=== PATIENT | female | born 1955 | race Hispanic/Latino ===

== ENCOUNTER 2016-05-02 12:15 | Emergency (ER) | payer OTHER ==
--- NOTE | 2016-05-02 12:51 | XRay Report ---
ROUTINE CHEST, TWO VIEWS: HISTORY: chest pain. No comparison. Heart size is borderline. Mild cephalization of pulmonary blood flow is suspected. There is no evidence for pleural effusion, infiltrate or pneumothorax. The thoracic cage is intact. IMPRESSION: Borderline heart size. Lungs clear.
[2016-05-02 13:46] LABS: Basophils % (Auto) 0.5 % (0.0-1.8); Hematocrit 36.1 % (30.3-42.9); Mean Corpuscular HGB Conc 33 % (30-34); Mean Corpuscular Hemoglobin 34 pg (28-32); Mean Corpuscular Volume 103 fl (79-97); Platelet Count 259 K/mm3 (140-440); Red Cell Distribution Width 14.1 % (13.2-15.2); White Blood Count 7.4 K/mm3 (4.5-11.0)
[2016-05-02 13:57] LABS: Anion Gap 21 mmol/L; BUN/Creatinine Ratio 12.35; Blood Urea Nitrogen 42 mg/dL (7-17); Calcium 8.9 mg/dL (8.4-10.2); Carbon Dioxide 22 mmol/L (22-30); Chloride 98.6 mmol/L (98-107); Glucose 104 mg/dL (65-100); Sodium 138 mmol/L (137-145)
[2016-05-02] MEDS ORDERED: CATAPRES PO ONE (14:15)
[2016-05-02] MEDS ORDERED: PROVENTIL IH ONE (14:15)
[2016-05-02] MEDS ORDERED: TESSALON PERLES PO ONE (14:15)
--- NOTE | 2016-05-02 14:17 | Emergency Department Report ---
ED General Adult HPI - General Chief complaint: Dyspnea/Respdistress Stated complaint: IVONNE Time Seen by Provider: 05/02/16 14:03 Source: patient, RN notes reviewed Mode of arrival: Ambulatory Limitations: No Limitations - History of Present Illness Initial comments: This is a 61-year-old female. She is previously unknown to me. Patient is not certain who her primary care doctor is. Has a past medical history of high cholesterol, hypertension. Reports a history of renal insufficiency and congestive heart failure. As per review of medical records from [facility], patient admitted to the hospital in May 2015, had a blood urea nitrogen of 60, and a creatinine of 2.92. Had an echocardiogram in May 2015, which demonstrated an ejection fraction of approximately 20-25%, With restrictive physiology. She was also noted to have a dilated left atrium, dilated right atrium. Patient reports she hasn't really followed up with cardiology or nephrology since then. She presents to the ER complaining of chest congestion, and shortness of breath for the past 3 days. The patient denies pain. She admits to cough, mucus production. She has chronically decreased exercise tolerance, chronic tobacco use. There is no leg pain. There is no leg swelling. No recent trips greater than 4 hours. No recent hospital admissions. The patient reports that her allergies are really really acting up. -: Gradual Consistency: intermittent Improves with: rest Worsens with: movement Associated Symptoms: cough, shortness of breath - Related Data Home Medications Medication Instructions Recorded Confirmed Last Taken AtorvaSTATin [Lipitor] 20 mg PO QHS 05/02/16 05/02/16 05/02/16 Carvedilol [Coreg] 6.25 mg PO BID 05/02/16 05/02/16 05/02/16 Hydralazine HCl [Apresoline TAB] 50 mg PO Q8HR 05/02/16 05/02/16 05/02/16 ISOSORBIDE MONOnitrate [Imdur ER] 30 mg PO DAILY 05/02/16 05/02/16 05/02/16 Torsemide [Demadex] 20 mg PO DAILY 05/02/16 05/02/16 05/02/16 Allergies Allergy/AdvReac Type Severity Reaction Status Date / Time No Known Allergies Allergy Unverified 05/02/16 12:21 ED Review of Systems ROS: Stated complaint: IVONNE Other details as noted in HPI Constitutional: denies: malaise Eyes: denies: vision change Respiratory: shortness of breath Cardiovascular: dyspnea on exertion Gastrointestinal: denies: abdominal pain, nausea, diarrhea Genitourinary: denies: urgency, dysuria, discharge Musculoskeletal: denies: back pain, joint swelling, arthralgia Skin: denies: rash, lesions Neurological: denies: headache, weakness, paresthesias Psychiatric: denies: anxiety, depression ED Past Medical Hx - Past Medical History Previous Medical History?: Yes Hx Hypertension: Yes Hx Heart Attack/AMI: Yes Hx Congestive Heart Failure: Yes Hx Renal Disease: Yes (renal insufficiency) Additional medical history: high cholesterol - Surgical History Past Surgical History?: No - Social History Smoking Status: Current Every Day Smoker Substance Use Type: Prescribed - Medications Home Medications: Home Medications Medication Instructions Recorded Confirmed Last Taken Type AtorvaSTATin [Lipitor] 20 mg PO QHS 05/02/16 05/02/16 05/02/16 History Carvedilol [Coreg] 6.25 mg PO BID 05/02/16 05/02/16 05/02/16 History Hydralazine HCl [Apresoline TAB] 50 mg PO Q8HR 05/02/16 05/02/16 05/02/16 History ISOSORBIDE MONOnitrate [Imdur ER] 30 mg PO DAILY 05/02/16 05/02/16 05/02/16 History Torsemide [Demadex] 20 mg PO DAILY 05/02/16 05/02/16 05/02/16 History ED Physical Exam - General Limitations: No Limitations General appearance: alert, in no apparent distress - Head Head exam: Present: atraumatic, normocephalic - Eye Eye exam: Present: normal appearance, EOMI. Absent: nystagmus - ENT ENT exam: Present: normal exam, normal orophraynx, mucous membranes moist, normal external ear exam - Neck Neck exam: Present: normal inspection, full ROM. Absent: tenderness, meningismus - Respiratory Respiratory exam: Present: normal lung sounds bilaterally, rhonchi. Absent: wheezes, rales, stridor, chest wall tenderness - Cardiovascular Cardiovascular Exam: Present: regular rate, normal rhythm, normal heart sounds. Absent: bradycardia, tachycardia, irregular rhythm, systolic murmur, diastolic murmur, rubs, gallop - GI/Abdominal GI/Abdominal exam: Present: soft, normal bowel sounds. Absent: distended, tenderness, guarding, rebound, rigid, pulsatile mass - Extremities Exam Extremities exam: Present: normal inspection, full ROM, normal capillary refill. Absent: tenderness, pedal edema, joint swelling, calf tenderness - Back Exam Back exam: Present: normal inspection, full ROM. Absent: tenderness, CVA tenderness (R), CVA tenderness (L), muscle spasm, paraspinal tenderness, vertebral tenderness - Neurological Exam Neurological exam: Present: alert, oriented X3, normal gait, other (Extraocular movements intact. Tongue midline. No facial droop. Facial sensation intact to light touch in the V1, V2, V3 distribution bilaterally. 5 and 5 strength in 4 extremities.. Sensation is intact to light touch in 4 extremities.). Absent : motor sensory deficit - Psychiatric Psychiatric exam: Present: normal affect, normal mood - Skin Skin exam: Present: warm, dry, intact, normal color. Absent: rash ED Course Vital Signs 05/02/16 05/02/16 05/02/16 12:25 14:31 14:57 Temperature 98.8 F 98.5 F Pulse Rate 84 77 74 Respiratory 22 16 13 Rate Blood Pressure 195/128 Blood Pressure 174/108 [Left] O2 Sat by Pulse 99 100 99 Oximetry 05/02/16 05/02/16 15:00 15:11 Temperature Pulse Rate 75 77 Respiratory 15 11 L Rate Blood Pressure 180/110 180/110 Blood Pressure [Left] O2 Sat by Pulse 100 Oximetry - Reevaluation(s) Reevaluation #1: 05/02/16 15:24 Differential diagnosis: Bronchitis, seasonal allergies, chronic renal insufficiency, chronic cardiomyopathy, cardiorenal syndrome Assessment and plan: 61-year-old female with cough, shortness of breath, mucus production. However, she is moderately hypertensive, has worsening renal insufficiency, decrease exercise tolerance is somewhat rhonchorous, and has an elevated BNP. Clinical picture is ambiguous, uncertain if early decompensated heart failure, worsening renal insufficiency, bronchitis, or combination of the above. I will discuss with cardiology, nephrology, and admit for further evaluation and management. 05/02/16 15:25 05/02/16 15:27 Reevaluation #2: 05/02/16 15:43 Dr Navas to admit Dr Zavala of renal to follow Reevaluation #3: 05/02/16 15:46 d/w Dr Owen who will follow ED Medical Decision Making - Lab Data Result diagrams: 05/02/16 13:21 05/02/16 13:21 Vital Signs 05/02/16 05/02/16 05/02/16 12:25 14:31 14:57 Temperature 98.8 F 98.5 F Pulse Rate 84 77 74 Respiratory 22 16 13 Rate Blood Pressure 195/128 Blood Pressure 174/108 [Left] O2 Sat by Pulse 99 100 99 Oximetry 05/02/16 05/02/16 15:00 15:11 Temperature Pulse Rate 75 77 Respiratory 15 11 L Rate Blood Pressure 180/110 180/110 Blood Pressure [Left] O2 Sat by Pulse 100 Oximetry Lab Results 05/02/16 05/02/16 05/02/16 Range/Units 13:21 13:21 13:21 WBC 7.4 (4.5-11.0) K/mm3 RBC 3.50 L (3.65-5.03) M/mm3 Hgb 12.0 (10.1-14.3) gm/dl Hct 36.1 (30.3-42.9) % MCV 103 H (79-97) fl MCH 34 H (28-32) pg MCHC 33 (30-34) % RDW 14.1 (13.2-15.2) % Plt Count 259 (140-440) K/mm3 Lymph % (Auto) 15.6 (13.4-35.0) % [place] % (Auto) 12.6 H (0.0-7.3) % Eos % (Auto) 2.0 (0.0-4.3) % Baso % (Auto) 0.5 (0.0-1.8) % Lymph # 1.2 (1.2-5.4) K/mm3 [place] # 0.9 H (0.0-0.8) K/mm3 Eos # 0.1 (0.0-0.4) K/mm3 Baso # 0.0 (0.0-0.1) K/mm3 Seg Neutrophils % 69.3 (40.0-70.0) % Seg Neutrophils # 5.1 (1.8-7.7) K/mm3 Sodium 138 (137-145) mmol/L Potassium 4.0 (3.6-5.0) mmol/L Chloride 98.6 (98-107) mmol/L Carbon Dioxide 22 (22-30) mmol/L Anion Gap 21 mmol/L BUN 42 H (7-17) mg/dL Creatinine 3.4 H (0.7-1.2) mg/dL Estimated GFR 14 ml/min BUN/Creatinine Ratio 12.35 % Glucose 104 H (65-100) mg/dL Calcium 8.9 (8.4-10.2) mg/dL Magnesium 2.5 H (1.7-2.3) mg/dL Troponin T < 0.010 (0.00-0.029) ng/mL NT-Pro-B Natriuret Pep 1635 H (0-900) pg/mL - EKG Data 05/02/16 15:26 normal sinus 73 bpm, normal intervals normal axis, qtc 475 ms, poor r wave progression, no prior for comparison - Radiology Data Radiology results: report reviewed, image reviewed mild pulm vasc congestion nap otherwise Critical care attestation.: If time is entered above; I have spent that time in minutes in the direct care of this critically ill patient, excluding procedure time. ED Disposition Clinical Impression: Cardiorenal syndrome Qualifiers: Hypertensive chronic kidney disease stage: stage 1-4 or unspecified chronic kidney disease Heart failure presence: with heart failure Qualified Code(s): I13.0 - Hypertensive heart and chronic kidney disease with heart failure and stage 1 through stage 4 chronic kidney disease, or unspecified chronic kidney disease Disposition: OP ADMITTED IP TO THIS HOSP Is pt being admited?: Yes Does the pt Need Aspirin: Yes Condition: Good Referrals: PRIMARY CARE, [Primary Care Provider] - 3-5 Days
[2016-05-02 15:18] LABS: Magnesium 2.5 mg/dL (1.7-2.3)
[2016-05-02 15:24] VITALS: BP 180/110
[2016-05-02] MEDS ORDERED: APRESOLINE IV ONE (15:27)
[2016-05-02] MEDS ORDERED: BABY ASPIRIN PO ONE (15:28)
--- NOTE | 2016-05-02 16:00 | Consultation ---
History of Present Illness - Reason for Consult Consult date: 05/02/16 acute renal failure, chronic renal failure - History of Present Illness Patient is a 61-year-old WF with history significant for Hypertension, Hyperlipidemia, COPD, cigarette smoking, Systolic CHF and CKD stage 4 approaching stage 5 came to ER with progressive SOB for the past few days. Patient smokes atleast one pack of cigarettes a day. She admits to cough with clear mucus production. She has chronic decreased exercise tolerance. Patient was admitted at [facility], [place] in May 2015, was diagnosed with CHF with EF 20-25% and CKD stage 4. Extensive renal workup at that time was negative. CKD was presumed secondary to Hypertensive Nephropathy. no h/o fever , rash, sore throat, N, V, D, abd pain, cp, dizziness, hemoptysis, weakness, dysuria or hematuria. She is not currently followed by any physician. Past History Past Medical History: COPD, hypertension, hyperlipidemia, renal failure Social history: , smoking. denies: alcohol abuse, prescription drug abuse Medications and Allergies Allergies Allergy/AdvReac Type Severity Reaction Status Date / Time No Known Allergies Allergy Unverified 05/02/16 12:21 Home Medications Medication Instructions Recorded Confirmed Last Taken Type AtorvaSTATin [Lipitor] 20 mg PO QHS 05/02/16 05/02/16 05/02/16 History Carvedilol [Coreg] 6.25 mg PO BID 05/02/16 05/02/16 05/02/16 History Hydralazine HCl [Apresoline TAB] 50 mg PO Q8HR 05/02/16 05/02/16 05/02/16 History ISOSORBIDE MONOnitrate [Imdur ER] 30 mg PO DAILY 05/02/16 05/02/16 05/02/16 History Torsemide [Demadex] 20 mg PO DAILY 05/02/16 05/02/16 05/02/16 History Review of Systems Constitutional: no weight loss, no weight gain, no fever, no chills, no anorexia Ears, nose, mouth and throat: no sinus pain, no epistaxis, no dysphagia Breasts: deferred Cardiovascular: shortness of breath, dyspnea on exertion, high blood pressure, no chest pain, no orthopnea, no edema, no syncope, no lightheadedness, no leg edema Respiratory: cough, cough with sputum, shortness of breath, dyspnea on exertion , no hemoptysis Gastrointestinal: no abdominal pain, no nausea, no vomiting, no diarrhea, no melena Genitourinary Female: no dysuria, no hematuria Rectal: no bleeding Musculoskeletal: no neck stiffness, no neck pain Integumentary: no rash, no wounds Neurological: no head injury, no paralysis, no weakness, no syncope Psychiatric: anxiety Hematologic/Lymphatic: no easy bleeding Allergic/Immunologic: no urticaria Exam - Vital Signs Vital signs: Vital Signs Temp Pulse Resp BP Pulse Ox 98.8 F 84 22 195/128 99 05/02/16 12:25 05/02/16 12:25 05/02/16 12:25 05/02/16 12:25 05/02/16 12:25 - General Appearance General appearance: well-developed, well-nourished, appears stated age, other ( no distress) EENT: PERRL, mucous membranes moist, hearing intact, vision intact Neck: Present: neck supple, trachea midline Respiratory: [place] Heart: regular, S1S2, no murmurs Gastrointestinal: Present: normoactive bowel sounds. Absent: tenderness, distended Integumentary: no rash, warm and dry Neurologic: no focal deficit, no asterixis, alert and oriented x3, CN 3-12 intact Musculoskeletal: Present: other (no edema) Psychiatric: cooperative Results - Lab Results 05/02/16 13:21 05/02/16 13:21 Most recent lab results Calcium 8.9 mg/dL (8.4-10.2) 05/02/16 13:21 Magnesium 2.5 mg/dL (1.7-2.3) H 05/02/16 13:21 Assessment and Plan - Patient Problems (1) Chronic kidney disease, stage 5 Status: Chronic Plan to address problem: CKD secondary to Hypertensive Nephropathy. Creatinine appears to be stable. (2) Accelerated hypertension Status: Acute Plan to address problem: Monitor BP and adjust meds as appropriate. (3) COPD exacerbation Status: Acute (4) Tobacco abuse Status: Chronic Plan to address problem: Counseled to quit smoking. (5) Medical non-compliance Status: Chronic Plan to address problem: Compliance encouraged.
--- NOTE | 2016-05-02 16:02 | Admit Criteria Form ---
Admission Criteria Documentation: HYPERTENSION Clinical Indications for Admission to Inpatient Care ( Place "X" for any and all applicable criteria): Admission is indicated for ANY ONE of the following(1)(2)(3)(4): [ ]I. Hypertensive emergency, with evidence of acute and progressing target organ disease as indicated by ANY ONE of the following: [ ]a) Hypertensive encephalopathy (eg, confusion, altered mental status) [ ]b) Cerebral infarction [ ]c) Intracranial hemorrhage [ ]d) Myocardial ischemia or infarction [ ]e) Pulmonary edema [ ]f) Aortic dissection [ ]g) Seizure [ ]h) Acute renal insufficiency [ ]i) Papilledema [ ]j) Microangiopathic hemolytic anemia [ ]II. Adrenergic crisis (eg, severe hypertension due to pheochromocytoma crisis, cocaine or amphetamine intoxication, or clonidine withdrawal) [ X]III. Severe hypertension (SBP greater than 180 mmHg or DBP greater than 110 mmHg or greater than the 95th percentile for age, gender, and height in pediatric patients) that cannot be controlled (eg, to SBP less than 160 mmHg and DBP less than 100 mmHg in adults) by treatment with oral medication in emergency department or observation care Extended stay beyond goal length of stay may be needed for(11)(12)(13): [ ]a) Persistent hypertensive encephalopathy [ ]b) Continuation of pulmonary edema [ ]c) Recurring or persistent severe hypertension [ ]d) Target organ damage (eg, angina, stroke, aortic dissection) [ ]e) Associated renal insufficiency The original [email or web address] content created by [email or web address] has been revised. The portions of the content which have been revised are identified through the use of italic text or in bold, and [facility] has neither reviewed nor approved the modified material. All other unmodified content is copyright [email or web address]. Please see references footnoted in the original [email or web address] edition 2016
--- NOTE | 2016-05-02 17:32 | Consultation ---
History of Present Illness Consult date: 05/02/16 Consult reason: chest pain, shortness of breath History of present illness: The patient claims that she was doing fine until this morning when she suddenly developed substernal chest heaviness associated with shortness of breath. She has no orthopnea. Initial set of troponin is negative for acute myocardial infarction. She admits to a history of chronic kidney disease. She claims that it was first diagnosed over a year ago. Past History Past Medical History: heart failure, hypertension, hyperlipidemia, renal failure Past Surgical History: No surgical history Social history: , smoking. denies: alcohol abuse Family history: CAD Medications and Allergies Allergies Allergy/AdvReac Type Severity Reaction Status Date / Time No Known Allergies Allergy Unverified 05/02/16 12:21 Home Medications Medication Instructions Recorded Confirmed Last Taken Type AtorvaSTATin [Lipitor] 20 mg PO QHS 05/02/16 05/02/16 05/02/16 History Carvedilol [Coreg] 6.25 mg PO BID 05/02/16 05/02/16 05/02/16 History Hydralazine HCl [Apresoline TAB] 50 mg PO Q8HR 05/02/16 05/02/16 05/02/16 History ISOSORBIDE MONOnitrate [Imdur ER] 30 mg PO DAILY 05/02/16 05/02/16 05/02/16 History Torsemide [Demadex] 20 mg PO DAILY 05/02/16 05/02/16 05/02/16 History Review of Systems Constitutional: no fever, no chills Ears, nose, mouth and throat: no ear pain, no ear discharge, no sore throat Cardiovascular: chest pain, shortness of breath, no orthopnea, no palpitations, no edema, no lightheadedness Respiratory: shortness of breath, no cough, no hemoptysis Gastrointestinal: no abdominal pain, no nausea, no vomiting, no diarrhea, no constipation Genitourinary Female: no dysuria, no urinary frequency Rectal: no pain, no bleeding Musculoskeletal: no neck stiffness, no neck pain, no myalgias Integumentary: no rash, no pruritis Neurological: no parathesias, no numbness, no tingling, no headaches Endocrine: no cold intolerance, no heat intolerance Hematologic/Lymphatic: no easy bruising, no easy bleeding Allergic/Immunologic: no urticaria, no wheezing Physical Examination Vital Signs Last Vital Signs Temp 98.5 F 05/02/16 14:31 Pulse 88 05/02/16 16:00 Resp 20 05/02/16 16:00 BP 180/110 05/02/16 15:11 Pulse Ox 100 05/02/16 15:11 General appearance: no acute distress HEENT: Positive: EOMI, Normocephaly, Mucus Membranes Moist Neck: Positive: neck supple, trachea midline Cardiac: Positive: Reg Rate and Rhythm, S1/S2 Lungs: Positive: Wheezes, Rhonchi Neuro: Positive: Grossly Intact Abdomen: Positive: Soft, Active Bowel Sounds. Negative: Tender Skin: Positive: Clear. Negative: Rash Musculoskeletal: Normal Range of Motion Extremities: Present: normal. Absent: edema Results 05/02/16 13:21 05/02/16 13:21 CBC 05/02/16 Range/Units 13:21 WBC 7.4 (4.5-11.0) K/mm3 RBC 3.50 L (3.65-5.03) M/mm3 Hgb 12.0 (10.1-14.3) gm/dl Hct 36.1 (30.3-42.9) % Plt Count 259 (140-440) K/mm3 Lymph # 1.2 (1.2-5.4) K/mm3 [place] # 0.9 H (0.0-0.8) K/mm3 Eos # 0.1 (0.0-0.4) K/mm3 Baso # 0.0 (0.0-0.1) K/mm3 Comprehensive Metabolic Panel 05/02/16 Range/Units 13:21 Sodium 138 (137-145) mmol/L Potassium 4.0 (3.6-5.0) mmol/L Chloride 98.6 (98-107) mmol/L Carbon Dioxide 22 (22-30) mmol/L BUN 42 H (7-17) mg/dL Creatinine 3.4 H (0.7-1.2) mg/dL Glucose 104 H (65-100) mg/dL Calcium 8.9 (8.4-10.2) mg/dL - Imaging and Cardiology EKG: image reviewed EKG interpretations - Telemetry EKG Rhythm: Sinus Rhythm - EKG Sinus rhythms and dysrhythmias: sinus rhythm Supraventricular dysrhythmia: atrial premature complexe Chamber hypertrophy or enlargement: left ventricular hypertro Myocardial infarction: septal PA (old age or ind Assessment and Plan I will optimize her antihypertensive regimen. Obtain additional sets of cardiac enzymes. Obtain echocardiogram. If cardiac enzymes are negative for acute myocardial infarction, she will undergo a Lexiscan stress test with nuclear imaging in a.m. - Patient Problems (1) Chest pain Current Visit: Yes Status: Acute (2) Shortness of breath Current Visit: Yes Status: Acute (3) Accelerated hypertension Current Visit: Yes Status: Acute (4) Acute kidney injury superimposed on CKD Current Visit: Yes Status: Acute (5) Tobacco abuse Current Visit: Yes Status: Acute
[2016-05-02] MEDS ORDERED: NORVASC PO SCH (18:00)
[2016-05-02] MEDS ORDERED: APRESOLINE PO SCH (18:00)
[2016-05-02] MEDS ORDERED: CATAPRES PO SCH (22:00)
== END 2016-05-02 16:57 | disposition left against medical advice (07) ==
LOC: ED 12:15
DX: I13.0 Hypertensive heart and chronic kidney disease with heart failure and stage 1 through stage 4 chronic kidney disease, or unspecified chronic kidney disease (principal); I25.2 Old myocardial infarction; E78.00 Pure hypercholesterolemia, unspecified; F17.200 Nicotine dependence, unspecified, uncomplicated
CPT/HCPCS: 36415; 71020; 80048; 83735; 83880; 84484; 85025; 93005; 93010; 94640

== ENCOUNTER 2017-10-24 15:15 | Emergency (ER) | payer OTHER ==
[2017-10-24 15:59] VITALS: BP 114/92
[2017-10-24 16:37] LABS: Basophils # (Auto) 0.1 K/mm3 (0.0-0.1); Basophils % (Auto) 0.9 % (0.0-1.8); Eosinophils # (Auto) 0.1 K/mm3 (0.0-0.4); Hematocrit 23.9 % (30.3-42.9); Lymphocytes # (Auto) 1.1 K/mm3 (1.2-5.4); Lymphocytes % (Auto) 14.3 % (13.4-35.0); Mean Corpuscular HGB Conc 34 % (30-34); Mean Corpuscular Hemoglobin 34 pg (28-32); Mean Corpuscular Volume 102 fl (79-97); Monocytes # (Auto) 0.7 K/mm3 (0.0-0.8); Monocytes % (Auto) 8.9 % (0.0-7.3); Platelet Count 334 K/mm3 (140-440); Red Blood Count 2.36 M/mm3 (3.65-5.03); Red Cell Distribution Width 17.1 % (13.2-15.2)
[2017-10-24 16:48] LABS: INR 1.15 (0.87-1.13)
[2017-10-24 17:07] LABS: BUN/Creatinine Ratio 7; Blood Urea Nitrogen 29 mg/dL (7-17); Calcium 7.4 mg/dL (8.4-10.2); Hemolysis Index 9
[2017-10-24] MEDS ORDERED: LASIX IV ONE (17:10)
--- NOTE | 2017-10-24 17:18 | Emergency Department Report ---
ED Shortness of Breath HPI - General Chief Complaint: Dizziness Stated Complaint: PAIN Time Seen by Provider: 10/24/17 17:08 Source: patient Mode of arrival: Wheelchair Limitations: No Limitations - History of Present Illness Initial Comments: Patient is a 62-year-old female with past medical history of atrial fibrillation that is long-standing as well as relatively new end-stage renal disease for the last 2 months. Patient is complaining of a worsening bilateral lower extremity edema. Patient states she was getting dizzy and possibly passed out although she family is having a hard time explaining this episode. Patient states she had dialysis yesterday but states that the leg swelling has worsened despite dialysis. Patient denies any chest pain does have shortness of breath is worse with exertion. Patient states her legs are heavy she's having a hard time walking. Did speak with the patient's sewage disposal worker at the sessions who stated that the leg swelling is chronic for the last 2 months and if the heart rate is in the low 100s chronically. - Related Data Previous Rx's Medication Instructions Recorded Last Taken Type Acetaminophen [Acetaminophen TAB] 650 mg PO Q4H PRN #15 tablet 10/18/17 Unknown Rx Amiodarone [Cordarone 200 MG TAB] 200 mg PO DAILY #30 tablet 10/18/17 Unknown Rx AtorvaSTATin [Lipitor] 20 mg PO QHS #30 tablet 10/18/17 Unknown Rx Folic Acid/Vit B Comp W-C [Renal 1 cap PO QDAY #30 capsule 10/18/17 Unknown Rx Caps] ISOSORBIDE MONOnitrate [Imdur ER] 30 mg PO DAILY #30 tablet 10/18/17 Unknown Rx Metoprolol [Lopressor TAB] 50 mg PO BID #60 tablet 10/18/17 Unknown Rx Torsemide [Demadex] 20 mg PO DAILY #30 tablet 10/18/17 Unknown Rx Warfarin [Coumadin] 1 mg PO DAILY@1700 #30 tablet 10/18/17 Unknown Rx oxyCODONE /ACETAMINOPHEN [Percocet 1 tab PO Q6H PRN #12 tablet 10/18/17 Unknown Rx 5/325 mg] Allergies Allergy/AdvReac Type Severity Reaction Status Date / Time No Known Allergies Allergy Verified 10/24/17 15:56 ED Review of Systems ROS: Stated complaint: PAIN Other details as noted in HPI Comment: All other systems reviewed and negative ED Past Medical Hx - Past Medical History Hx Hypertension: Yes Hx Heart Attack/AMI: No Hx Congestive Heart Failure: Yes Hx Diabetes: Yes Hx Renal Disease: Yes Hx COPD: Yes Hx HIV: No Additional medical history: high cholesterol - Social History Smoking Status: Current Some Day Smoker Substance Use Type: None - Medications Home Medications: Home Medications Medication Instructions Recorded Confirmed Last Taken Type Acetaminophen [Acetaminophen TAB] 650 mg PO Q4H PRN #15 tablet 10/18/17 Unknown Rx Amiodarone [Cordarone 200 MG TAB] 200 mg PO DAILY #30 tablet 10/18/17 Unknown Rx AtorvaSTATin [Lipitor] 20 mg PO QHS #30 tablet 10/18/17 Unknown Rx Folic Acid/Vit B Comp W-C [Renal 1 cap PO QDAY #30 capsule 10/18/17 Unknown Rx Caps] ISOSORBIDE MONOnitrate [Imdur ER] 30 mg PO DAILY #30 tablet 10/18/17 Unknown Rx Metoprolol [Lopressor TAB] 50 mg PO BID #60 tablet 10/18/17 Unknown Rx Torsemide [Demadex] 20 mg PO DAILY #30 tablet 10/18/17 Unknown Rx Warfarin [Coumadin] 1 mg PO DAILY@1700 #30 tablet 10/18/17 Unknown Rx oxyCODONE /ACETAMINOPHEN [Percocet 1 tab PO Q6H PRN #12 tablet 10/18/17 Unknown Rx 5/325 mg] ED Physical Exam - General Limitations: No Limitations General appearance: alert, in no apparent distress - Head Head exam: Present: atraumatic, normocephalic - Eye Eye exam: Present: normal appearance - ENT ENT exam: Present: mucous membranes moist - Neck Neck exam: Present: normal inspection - Respiratory Respiratory exam: Present: normal lung sounds bilaterally, rales (bibasilar rails up to about the mid lung field). Absent: respiratory distress, wheezes, rhonchi, stridor - Cardiovascular Cardiovascular Exam: Present: regular rate, normal rhythm, tachycardia. Absent : systolic murmur, diastolic murmur, rubs, gallop - GI/Abdominal GI/Abdominal exam: Present: soft, normal bowel sounds. Absent: distended, tenderness, guarding - Extremities Exam Extremities exam: Present: normal inspection, pedal edema (he has 2+ edema up to the mid calf) - Back Exam Back exam: Present: normal inspection - Neurological Exam Neurological exam: Present: alert, oriented X3 - Psychiatric Psychiatric exam: Present: normal affect, normal mood - Skin Skin exam: Present: warm, dry, intact, normal color. Absent: rash ED Course Vital Signs 10/24/17 15:56 Temperature 98.5 F Pulse Rate 115 H Respiratory 18 Rate Blood Pressure 114/92 O2 Sat by Pulse 100 Oximetry ED Medical Decision Making - Lab Data Result diagrams: 10/24/17 16:18 10/24/17 16:18 Labs 10/24/17 10/24/17 10/24/17 16:18 16:18 16:18 WBC 7.7 RBC 2.36 L Hgb 8.0 L Hct 23.9 L MCV 102 H MCH 34 H MCHC 34 RDW 17.1 H Plt Count 334 Lymph % (Auto) 14.3 [place] % (Auto) 8.9 H Eos % (Auto) 1.0 Baso % (Auto) 0.9 Lymph # 1.1 L [place] # 0.7 Eos # 0.1 Baso # 0.1 Seg Neutrophils % 74.9 H Seg Neutrophils # 5.8 PT 15.3 H INR 1.15 H Sodium 142 Potassium 3.7 Chloride 95.7 L Carbon Dioxide 24 Anion Gap 26 BUN 29 H Creatinine 4.4 H Estimated GFR 10 BUN/Creatinine Ratio 7 Glucose 101 H Calcium 7.4 L Troponin T < 0.010 - EKG Data -: EKG Interpreted by Me - EKG Data Interpretation: other (EKG shows atrial flutter with a rate of 108 anterior septal Q waves are present axis is normal theST segment elevations or depressions time of interpretation is 1607) - Radiology Data He has some pulmonary vascular congestion but no overt failure. - Medical Decision Making Patient is a 62-year-old female who is presenting with some increased leg swelling. Patient has minimal shortness of breath this morning which has improved since she's been here. Patient's has long-standing atrial fibrillation with a rate of approximately 100. I did discuss the case with the patient's sewage disposal worker Dr. esparza. He stated that the patient could follow- up with him in the morning for dialysis. He believes the patient is stable for discharge charge at this time and I do agree. Patient is discharged in stable condition. Critical care attestation.: If time is entered above; I have spent that time in minutes in the direct care of this critically ill patient, excluding procedure time. ED Disposition Clinical Impression: ESRD (end stage renal disease), Leg edema, Atrial fibrillation and flutter Disposition: DC-01 TO HOME OR SELFCARE Is pt being admited?: No Does the pt Need Aspirin: No Condition: Stable Referrals: RESHMA NICOLAS MD [Staff Physician] - 24 Hours Time of Disposition: 18:53
--- NOTE | 2017-10-24 18:52 | XRay Report ---
FINAL REPORT PROCEDURE: Chest. TECHNIQUE: PA and lateral views. HISTORY: Chest pain. COMPARISON: Chest 10/05/2017. FINDINGS: The heart size is mildly enlarged. There is faint calcification in the aortic arch. The lungs are grossly clear. There is a tiny right pleural effusion. There is a right internal jugular venous dialysis type catheter. The regional skeleton appears intact. IMPRESSION: Tiny right pleural effusion. Mild cardiomegaly.
== END 2017-10-24 19:07 | disposition home or self-care (01) ==
LOC: ED 15:15
DX: I13.2 Hypertensive heart and chronic kidney disease with heart failure and with stage 5 chronic kidney disease, or end stage renal disease (principal); N18.6 End stage renal disease; E11.22 Type 2 diabetes mellitus with diabetic chronic kidney disease; I48.91 Unspecified atrial fibrillation; J44.9 Chronic obstructive pulmonary disease, unspecified; E78.00 Pure hypercholesterolemia, unspecified; F17.200 Nicotine dependence, unspecified, uncomplicated
CPT/HCPCS: 36415; 71046; 80048; 84484; 85025; 85610; 93005; 93010; 96374; 99284; J1940